=== PATIENT | male | born 1955 | race Caucasian/White ===

== ENCOUNTER → 2021-09-01 | Outpatient (CLI) | payer MEDICARE ==
[~2021-09-01] MED LIST: BENADRYL25 M2 PO; FLOMAX 0.40.4 MG/CAP PO; INDERAL 20MG20 MG PO; KLOR-CON SPRINK8 MEQ PO; LASIX 20MG TABL20 MG PO; TRIAMCINOLONE A15 G3 TP
== END ==
LOC: COL.RAD 10:24
DX: Z01.818 Encounter for other preprocedural examination (principal); K74.60 Unspecified cirrhosis of liver; K76.6 Portal hypertension; B19.20 Unspecified viral hepatitis C without hepatic coma
CPT/HCPCS: Q9967

== ENCOUNTER 2021-09-08 09:05 | Day surgery (SDC) | payer MEDICARE ==
[~2021-09-08] VITALS: Ht 177.8 cm; Wt 120.7 kg
--- NOTE | 2021-09-08 09:15 | NUR ---
Patient ambulated to bay #9 with a steady gait. No assistive devices. Vitals obtained. Consent signed and patient verbalized understaning. Patient has a warm blanket, non-slip socks and call fofana. See physical assessment. Will continue to monitor
[2021-09-08 09:33] VITALS: BP 141/97; PULSE 67; TEMP 98
[2021-09-08] MEDS ORDERED: LASIX 20MG TABL20 MG PO (09:42)
[2021-09-08] MEDS ORDERED: INDERAL 20MG20 MG PO (09:42)
[2021-09-08] MEDS ORDERED: KLOR-CON SPRINK8 MEQ PO (09:43)
[2021-09-08] MEDS ORDERED: FLOMAX 0.40.4 MG/CAP PO (09:43)
[2021-09-08] MEDS ORDERED: TRIAMCINOLONE A15 G3 TP (09:44)
[2021-09-08] MEDS ORDERED: BENADRYL25 M2 PO (09:45)
[2021-09-08 10:25] VITALS: BP 120/76; PULSE 70; TEMP 98.1
--- NOTE | 2021-09-08 10:25 | NUR ---
PATIENT BROUGHT BACK TO ENDO ROOM 9 VIA CART. AMBULATED TO CHAIR WITH ONE ASSIST. PLACED ON MONITORS, VITAL SIGNS STABLE. IV INFUSING. PABLO RN AT BEDSIDE TO GIVE REPORT. PATIENT REQUESTS WATER. DENIES PAIN OR [place]. CALL ALEMAN WITHIN REACH, WARM BLANKET PROVIDED. WILL CONTINUE TO MONITOR. 1040- PATIENT TOLERATING WATER WITHOUT DIFFICULTY. AWAITING TO SPEAK WITH DR. RODRÍGUEZ. WILL CONTINUE TO MONITOR. VITAL SIGNS STABLE
[2021-09-08 10:40] VITALS: BP 117/77; PULSE 69
[2021-09-08 10:55] VITALS: BP 139/86; PULSE 65
--- NOTE | 2021-09-08 10:55 | NUR ---
DR. RODRÍGUEZ AT BEDSIDE TO DISCUSS RESULTS. PATIENT STATES HE FEELS READY TO GO HOME NOW. DAUGHTER LATASHA CALLED, WILL COME PICK PATIENT UP. 1105- IV REMOVED, INTACT. PATIENT TO GET DRESSED AT THIS TIME. 1118- PATIENT BROUGHT DOWN TO LOBBY VIA WHEEL CHAIR. ALL BELONGINGS IN HAND. DAUGHTER AT PATIENT ENTRANCE TO DRIVE HOME. ALL SAFETY MAINTAINED.
== END 2021-09-08 10:55 | disposition home or self-care (01) ==
LOC: SDCO 09:05
DX: K70.30 Alcoholic cirrhosis of liver without ascites (principal); I85.10 Secondary esophageal varices without bleeding; K29.30 Chronic superficial gastritis without bleeding; K76.6 Portal hypertension; I10 Essential (primary) hypertension; M19.90 Unspecified osteoarthritis, unspecified site; J45.909 Unspecified asthma, uncomplicated; G89.29 Other chronic pain; Z79.899 Other long term (current) drug therapy
CPT/HCPCS: J2704; J7030